=== PATIENT | female | born 1995 | race Caucasian/White ===

== ENCOUNTER 2018-06-10 21:15 | Emergency (ER) | payer OTHER ==
[~2018-06-10] VITALS: Ht 147.3 cm; Wt 56.7 kg
[~2018-06-10 21:15] MED LIST: HYDROXYZINE HCL50 MG PO; PAROXETINE CR12.5 MG PO
== END 2018-06-10 23:30 | disposition home or self-care (01) ==
LOC: ED 21:15
DX: M25.561 Pain in right knee (principal); F41.9 Anxiety disorder, unspecified
CPT/HCPCS: 73560; 99283

== ENCOUNTER 2019-02-16 21:31 | Emergency (ER) | payer OTHER ==
[~2019-02-16] VITALS: Ht 147.3 cm; Wt 59.0 kg
[~2019-02-16 21:31] MED LIST changes: +ACYCLOVIR200 MG PO
[2019-02-16] MEDS ORDERED: ACYCLOVIR400 MG PO (21:55)
[2019-02-16] MEDS ORDERED: AMOXICILLIN500 MG PO (22:31)
== END 2019-02-16 22:40 | disposition home or self-care (01) ==
LOC: ED 21:31
DX: H66.92 Otitis media, unspecified, left ear (principal); F41.9 Anxiety disorder, unspecified
CPT/HCPCS: 99282

== ENCOUNTER 2019-04-26 11:37 | Emergency (ER) | payer OTHER ==
[~2019-04-26] VITALS: Ht 149.9 cm; Wt 62.4 kg
[~2019-04-26 11:37] MED LIST changes: +ACYCLOVIR400 MG PO; +AMOXICILLIN500 MG PO
== END 2019-04-26 16:21 | disposition home or self-care (01) ==
LOC: ED 11:37
DX: O34.81 Maternal care for other abnormalities of pelvic organs, first trimester (principal); N83.201 Unspecified ovarian cyst, right side; Z3A.01 Less than 8 weeks gestation of pregnancy
CPT/HCPCS: 76801; 76817; 80053; 81001; 84702; 85025; 86900; 86901; 99283

== ENCOUNTER 2019-12-12 18:24 | Inpatient (IN) | payer OTHER ==
[~2019-12-12] VITALS: Ht 147.3 cm; Wt 73.0 kg
[2019-12-12] MEDS ORDERED: VITAFOL-OB+DHA1 EACH PO (20:54)
[2019-12-12] MEDS ORDERED: ACYCLOVIR400 MG PO (20:54)
[2019-12-12] MEDS ORDERED: FOLIC ACID1 MG PO (20:54)
--- NOTE | 2019-12-12 22:13 | PR ---
[facility] [address] [facility] [address] [place], [place] [address] Signed Progress Notes IP Datetime Report Generated by CPMelida: 12/12/2019 22:13 PROGRESS NOTES: [id number] Impression: Normal progression of labor; Reassuring heart rate Procedures: Sterile Vag Exam Plan: Continue present management; Anticipate Vaginal Delivery VITAL SIGNS: [id number] Vital Signs: Reviewed; Within Normal Limits EXAM: [id number] Dilatation: 8.0 Effacement: 100 Station: 0 Uterine Contractions: q1-2 MEMBRANES: [id number] Membrane Status: Intact Comments: Pt seen and examined. Doing well. Comfortable w/ epidurals. Feeling increased pressure. Anticipate soon. Reviewed anticipated course of labor. All questions answered Fetus A: [id number] FHR Baseline: 140 Variability: Moderate 6-25bpm Accelerations: 15X15 Decelerations: None FHR Category: Category I Presentation: Vertex Comments on Fetus A: No evidence of metabolic acidosis Fetus B: [id number] Signing Physician: Cheryl Levi DO Copies: ~ *Electronically Signed* 12/12/19 9425 CHERYL LEVI DO PATIENT NAME: JEANETTE ALARCON PROGRESS NOTE DATE OF : [birth year] PHYSICIAN: CHERYL LEVI DO RPT #: [id number] REPORT IS CONFIDENTIAL AND NOT TO BE RELEASED WITHOUT AUTHORIZATION
--- NOTE | 2019-12-13 12:28 | PR ---
[facility] [address] [facility] [place], [place] [address] Signed PP Progress Notes Datetime Report Generated by CPN: 12/13/2019 12:28 SUBJECTIVE: [id number] Pain: Within normal limits Nausea/Vomiting: Denies Flatus: Yes Vital Signs: [id number] Vital Signs: Reviewed EXAM: [id number] Cardiovascular: Normal Respiratory: Normal Abdomen/Uterus: Normal Lochia: Normal Vulva/Perineum: Not Done Breasts: Not Done CVA Tenderness: Normal Extremities: Normal Exam Comments: Fundus Firm U-2 nontender. Breastfeeeding baby IMPRESSION/PLAN/PROCEDURES: [id number] Impression: Normal progression Plan: Continue present management Progress Notes: Pt doing well. No problems. Breastfeeeding well. Anticipate d/c home tomorrow. Signing Physician: Cheryl Levi DO Copies: ~ *Electronically Signed* 12/13/19 1228 CHERYL LEVI DO PATIENT NAME: JEANETTE ALARCON PROGRESS NOTE DATE OF : 97 PHYSICIAN: CHERYL LEVI DO RPT #: [id number] REPORT IS CONFIDENTIAL AND NOT TO BE RELEASED WITHOUT AUTHORIZATION
--- NOTE | 2019-12-14 11:15 | PR ---
[facility] [address] [facility] [place], [place] [address] Signed PP Progress Notes Datetime Report Generated by CPN: 12/14/2019 11:15 SUBJECTIVE: [id number] Pain: Within normal limits Nausea/Vomiting: Denies Flatus: Yes Bowel Movement: No Vital Signs: [id number] Vital Signs: Reviewed; Within Normal Limits EXAM: [id number] Cardiovascular: Normal Respiratory: Normal Abdomen/Uterus: Normal Lochia: Normal Vulva/Perineum: Not Done Breasts: Not Done CVA Tenderness: Normal Extremities: Normal Incision: Not Applicable Progress: Normal Exam Comments: Fundus firm U-2 nontender IMPRESSION/PLAN/PROCEDURES: [id number] Impression: Normal progression Plan: Discharge Progress Notes: Pt seen and examined. Doing well. Ambulating, voiding, and tolerating full diet. Pain and lochia minimal. well. Desires d/c home. Reviewed pp instructions in detail. All questions answered Signing Physician: Cheryl Levi DO Copies: ~ *Electronically Signed* 12/14/19 1115 CHERYL LEVI DO PATIENT NAME: JEANETTE ALARCON PROGRESS NOTE DATE OF : [birth year] PHYSICIAN: CHERYL LEVI DO RPT #: [id number] REPORT IS CONFIDENTIAL AND NOT TO BE RELEASED WITHOUT AUTHORIZATION
== END 2019-12-14 11:55 | disposition home or self-care (01) | DRG 807 ==
LOC: FBCO 18:24 → FBC 19:50
PROVIDERS: ADMIT Obstetrics & Gynecology
PROC: 10E0XZZ Delivery of Products of Conception, External Approach (ICD-10-PCS; principal; 2019-12-12)
PROC: 0UQMXZZ Repair Vulva, External Approach (ICD-10-PCS; 2019-12-12)
PROC: 10907ZC Drainage of Amniotic Fluid, Therapeutic from Products of Conception, Via Natural or Artificial Opening (ICD-10-PCS; 2019-12-12)
PROC: 00HU33Z Insertion of Infusion Device into Spinal Canal, Percutaneous Approach (ICD-10-PCS; 2019-12-12)
PROC: 3E0R3BZ Introduction of Anesthetic Agent into Spinal Canal, Percutaneous Approach (ICD-10-PCS; 2019-12-12)
DX: O98.32 Other infections with a predominantly sexual mode of transmission complicating childbirth (principal); Z37.0 Single live birth; A60.00 Herpesviral infection of urogenital system, unspecified; Z3A.38 38 weeks gestation of pregnancy; O71.82 Other specified trauma to perineum and vulva; Z86.19 Personal history of other infectious and parasitic diseases; Z79.899 Other long term (current) drug therapy; Z82.79 Family history of other congenital malformations, deformations and chromosomal abnormalities
CPT/HCPCS: 36415; 85027; A9270; J2795; J3010; J7121

== ENCOUNTER 2020-03-16 19:49 | Emergency (ER) | payer OTHER ==
[~2020-03-16] VITALS: Ht 147.3 cm; Wt 61.7 kg
[~2020-03-16 19:49] MED LIST changes: +FOLIC ACID1 MG PO; +VITAFOL-OB+DHA1 EACH PO
--- OUTSIDE RECORDS SUMMARY | 2020-03-16 19:52 | XMS ---
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 Guidelines Source: [facility] [place] Guidelines Date: 04/28/2019 Care Coordination: Mental health services provided by [facility].\T\nbsp; Please contact [facility] with mental health concerns.\T\nbsp; [facility]: [phone]\T\ nbsp; [place]: [phone]. E.D. VISIT COUNT (12 MO.) 2 [facility] TOTAL 2 NOTE: Visits indicate total known visits. ED/UCC VISIT TRACKING (12 MO.) 03/16/2020 19:49 [facility] TYPE: Emergency COMPLAINT: - VAGINAL BLEEDING 04/26/2019 11:37 [facility] TYPE: Emergency COMPLAINT: - VAGINAL BLEEDING DIAGNOSES: - Maternal care for other abnormalities of pelvic organs, first - Hemorrhage in early , unspecified - Unspecified ovarian cyst, right side - Less than 8 weeks gestation of INPATIENT VISIT TRACKING (12 MO.) 12/12/2019 19:50 [facility] COMPLAINT: - OB CHECK DIAGNOSES: - Single live - Single live - 38 weeks gestation of - Family history of other congenital malformations, deformation - Family history of other congenital malformations, deformation - Other infections with a predominantly sexual mode of transmis - Other penitentiary (current) drug therapy - Other 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
[2020-03-16] MEDS ORDERED: SERTRALINE HCL50 MG PO (20:22)
== END 2020-03-16 21:45 | disposition home or self-care (01) ==
LOC: ED 19:49
DX: O20.0 Threatened abortion (principal); O99.341 Other mental disorders complicating pregnancy, first trimester; F41.9 Anxiety disorder, unspecified; Z79.899 Other long term (current) drug therapy; Z3A.01 Less than 8 weeks gestation of pregnancy
CPT/HCPCS: 81001; 84702; 84703; 99284

== ENCOUNTER → 2020-03-19 | Emergency (ER) | payer OTHER ==
[~2020-03-19] VITALS: Ht 147.3 cm; Wt 61.7 kg
[~2020-03-19] MED LIST changes: +SERTRALINE HCL50 MG PO
--- OUTSIDE RECORDS SUMMARY | 2020-03-19 13:56 | XMS ---
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 Care History Medical/Surgical 03/17/2020 [facility] - PATIENT HAS AN APT WITH DR CHILDS ON April. E.D. VISIT COUNT (12 MO.) 3 [facility]. TOTAL 3 NOTE: Visits indicate total known visits. 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
== END ==
LOC: ED 13:53
DX: O20.0 Threatened abortion (principal); Z3A.08 8 weeks gestation of pregnancy
CPT/HCPCS: 76801; 76817; 84702; 85025; 99284-25

== ENCOUNTER 2020-03-25 07:58 | Day surgery (SDC) | payer OTHER ==
[~2020-03-25] VITALS: Ht 147.3 cm; Wt 61.7 kg
--- NOTE | ~2020-03-25 | OR ---
[facility] [address] [place], [place] [address] Draft DATE OF OPERATION: 03/25/2020 SURGEON: Cheryl Levi DO PREOPERATIVE DIAGNOSIS: Missed miscarriage at approximately 9 weeks gestation. POSTOPERATIVE DIAGNOSIS: Missed miscarriage at approximately 9 weeks gestation. PROCEDURE PERFORMED: Suction D and C. ANESTHESIA: General. ESTIMATED BLOOD LOSS: 400 mL. SPECIMEN: Products of conception. FINDINGS: Approximately 9-week size uterus with cervix that dilates easily. Large gush of blood with initial pass of suction curette. This quickly improved with aggressive treatment of bleeding including completion of evacuation of products with suction D and C and sharp curette, Pitocin 60 units and 1 liter of LR bolused, tranexamic acid 1 g IV, and bimanual massage. Hemostasis at the end of the procedure. COMPLICATIONS: None. INDICATIONS: Ms. Alarcon is a pleasant 24-year-old, G3, P2-0-1-2 with intrauterine at approximately 9 weeks gestation. She was seen several times in the last week in the emergency department with large gushes of blood, but ultrasounds had shown only a small juan carlos-implantation hemorrhage and living IUP. Yesterday, the patient was seen for intake OB visit and bedside ultrasound demonstrated no cardiac activity. The patient was sent for an official ultrasound that confirmed 9-week demise. We reviewed options for management of missed miscarriage and the patient strongly desires suction D and C. PATIENT NAME: JEANETTE ALARCON OPERATIVE REPORT DATE OF : [birth year] REPORT #: [id number] PHYSICIAN: CHERYL LEVI DO PCP: NO PRIMARY CARE PHYSICIAN REPORT IS CONFIDENTIAL AND NOT TO BE RELEASED WITHOUT AUTHORIZATION [facility] [address] [place], [place] [address] Draft Risks, benefits, and alternatives were discussed in detail with the patient. Risks include, but are not limited to, infection, bleeding, Asherman syndrome with resulting infertility, perforation, or hysterectomy. The patient understands and wished to proceed with the procedure. TECHNIQUE: The patient was taken to the operating room. Time-out was performed to confirm correct patient and correct procedure. General anesthesia was adequately established. The patient was prepped and draped in the dorsal lithotomy position with feet in Yellofin stirrups. ICPs were on and running. The patient received doxycycline 200 mg p.o. 1 hour preoperatively per ACOG guidelines and no heparin was indicated. A weighted speculum was placed in the vagina and the anterior lip of the cervix was grasped with an Allis clamp. The cervix was gently dilated using Hegar dilators to a #11. An #11 curved curette was selected and advanced gently to the fundus. Suction was obtained to the green zone and the curette was removed while performing circumferential curettage. Initial large gush of blood was noted. This was treated aggressively with 60 units of Pitocin, placed into 1 liter of LR bolused as well as tranexamic acid 1 g IV. Several passes of the suction curette were simultaneously performed and the bleeding improved. Gentle sharp curettage was performed circumferentially insuring the all products of conception were removed. Bleeding improved significantly and bimanual pressure was held for several minutes. One final pass of the suction curette was then performed that demonstrated no additional products of conception and hemostasis was maintained. The patient was then taken to PACU in good and stable condition. Sponge, needle, and instrument count was correct x2. Cheryl Levi DO JOrlyW/LUISA /[id number] Copies: ~ PATIENT NAME: JEANETTE ALARCON OPERATIVE REPORT DATE OF : 97 REPORT #: [id number] PHYSICIAN: CHERYL LEVI DO PCP: NO PRIMARY CARE PHYSICIAN REPORT IS CONFIDENTIAL AND NOT TO BE RELEASED WITHOUT AUTHORIZATION
[2020-03-25] MEDS ORDERED: MOTRIN IB200 M1 PO (11:31)
[2020-03-25] MEDS ORDERED: NORCO 5-325 TA1 EACH PO (11:31)
== END 2020-03-25 13:42 | disposition home or self-care (01) ==
LOC: OPS 07:58 → DS 07:58 → OPS 13:42
PROVIDERS: Obstetrics & Gynecology
PROC: 10D17ZZ Extraction of Products of Conception, Retained, Via Natural or Artificial Opening (ICD-10-PCS; principal; 2020-03-25 08:00)
DX: O02.1 Missed abortion (principal); Z79.899 Other long term (current) drug therapy
CPT/HCPCS: 00952; 85027; 88305; J1100; J1885; J2250; J2405; J2590; J2704; J2765; J3010; J7121

== ENCOUNTER 2021-09-10 23:11 | Inpatient (IN) | payer OTHER ==
[~2021-09-10] VITALS: Ht 116.8 cm; Wt 72.6 kg
[~2021-09-10 23:11] MED LIST changes: +MOTRIN IB200 M1 PO; +NORCO 5-325 TA1 EACH PO
--- NOTE | 2021-09-10 23:59 | NUR ---
PT WAS SWABBED FOR COVID 19
--- NOTE | 2021-09-11 01:08 | PR ---
[facility] [address] [place], [place] [address] Signed Progress Notes IP Datetime Report Generated by CPN: 09/11/2021 01:07 PROGRESS NOTES: [id number] Impression: Normal Progression of Labor Procedures: Artificial ROM; Sterile Vag Exam Plan: Continue Present Management; Anticipate Vaginal Delivery Informed Consent Obtain: Vaginal Delivery VITAL SIGNS: [id number] Vital Signs: Reviewed VS Notable Details: Mild tachycardia EXAM: [id number] Dilatation: 5.0 Effacement: 70 Station: -2 Contractions: Irregular MEMBRANES: [id number] Comments: Detailed perineal / vulvar exam performed confirming no visable lesions and pt declines prodromal sx. Comfortable w/ epidural. Discussed AROM and pt agrees. head well applied and AROM performed w/out difficulty for small amount of clear fluid. Reviewed anticipated course of remained of labor and delivery. All questions answered. FETUS A: [id number] FHR Baseline: 135 Variability: Moderate 6-25bpm Accelerations: 15X15 Decelerations: Prolonged FHR Category: Category II Presentation: Vertex Comments on Fetus A: One spontaneous prolonged decel that resolved w/ repositioning. Cat 1 stince FETUS B: [id number] Signing Physician: Cheryl Levi DO Copies: ~ *Electronically Signed* 09/11/21 0107 CHERYL LEVI DO PATIENT NAME: JEANETTE ALARCON PROGRESS NOTE DATE OF : 97 PHYSICIAN: CHERYL LEVI DO RPT #: [id number] REPORT IS CONFIDENTIAL AND NOT TO BE RELEASED WITHOUT AUTHORIZATION
--- NOTE | 2021-09-11 03:33 | PR ---
[facility] [address] [place], [place] [address] Signed Progress Notes IP Datetime Report Generated by CPN: 09/11/2021 03:33 PROGRESS NOTES: [id number] Impression: Normal Progression of Labor; Reassuring Heart Rate Procedures: Intrauterine Pressure Catheter; Sterile Vag Exam Plan: Continue Present Management; Anticipate Vaginal Delivery Informed Consent Obtain: Vaginal Delivery VITAL SIGNS: [id number] Vital Signs: Reviewed VS Notable Details: Mild tachycardia EXAM: [id number] Dilatation: 7.5 Effacement: 90 Station: -2 Contractions: Irregular MEMBRANES: [id number] ROM Note: AROM by Lvei DO Comments: Pt seen and examined. Becoming slightly more uncomfortable despite epidural. Pt declines bolus. DIscussed IUPC to monitor ctxs more closely and pt agrees. IUPC placed w/out difficulty. Noted cervical change, adequate pelvis, and EFW. Anticipate soon. FETUS A: [id number] FHR Baseline: 135 Variability: Moderate 6-25bpm Accelerations: 15X15 Decelerations: Prolonged FHR Category: Category II Presentation: Vertex Comments on Fetus A: One spontaneous prolonged decel that resolved w/ repositioning. Cat 1 stince FETUS B: [id number] Signing Physician: Cheryl Levi DO Copies: ~ *Electronically Signed* 09/11/21 0333 CHERYL LEVI DO PATIENT NAME: JEANETTE ALARCON PROGRESS NOTE DATE OF : 97 PHYSICIAN: CHERYL LEVI DO RPT #: [id number] REPORT IS CONFIDENTIAL AND NOT TO BE RELEASED WITHOUT AUTHORIZATION
--- NOTE | 2021-09-12 07:59 | PR ---
[facility] [address] [facility] [place], [place] [address] Signed PP Progress Notes Datetime Report Generated by CPN: 09/12/2021 07:59 SUBJECTIVE: [id number] Pain: Within Normal Limits Nausea/Vomiting: Denies Flatus: Yes Bowel Movement: No Vital Signs: [id number] Vital Signs: Reviewed; Within Normal Limits Cardiovascular: Normal Respiratory: Normal Abdomen/Uterus: Normal Lochia: Normal Extremities: Normal Exam Comments: Fundus firm U-2 nontender IMPRESSION/PLAN/PROCEDURES: [id number] Impression: Normal Progression Plan: Discharge Progress Notes: Pt seen and examined. Doing well. Ambulating, voiding, and tolerating full diet. Pain and lochia minimal. well. No concerns. Desires d/c home today. Planning tubal ligation for pp contraception. Reviewed d/c instructions in detail Signing Physician: Cheryl Levi DO Copies: ~ *Electronically Signed* 09/12/21 0759 CHERYL LEVI DO PATIENT NAME: JEANETTE ALARCON PROGRESS NOTE DATE OF : 97 PHYSICIAN: CHERYL LEVI DO RPT #: [id number] REPORT IS CONFIDENTIAL AND NOT TO BE RELEASED WITHOUT AUTHORIZATION
== END 2021-09-12 10:34 | disposition home or self-care (01) | DRG 807 ==
LOC: FBCO 23:11 → FBC 23:15
PROVIDERS: ADMIT Obstetrics & Gynecology; ATTEND Obstetrics & Gynecology
PROC: 10E0XZZ Delivery of Products of Conception, External Approach (ICD-10-PCS; principal; 2021-09-10)
PROC: 10907ZC Drainage of Amniotic Fluid, Therapeutic from Products of Conception, Via Natural or Artificial Opening (ICD-10-PCS; 2021-09-10)
PROC: 10H07YZ Insertion of Other Device into Products of Conception, Via Natural or Artificial Opening (ICD-10-PCS; 2021-09-10)
PROC: 3E0R3BZ Introduction of Anesthetic Agent into Spinal Canal, Percutaneous Approach (ICD-10-PCS; 2021-09-10)
PROC: 00HU33Z Insertion of Infusion Device into Spinal Canal, Percutaneous Approach (ICD-10-PCS; 2021-09-10)
DX: O98.32 Other infections with a predominantly sexual mode of transmission complicating childbirth (principal); Z37.0 Single live birth; Z3A.39 39 weeks gestation of pregnancy; Z20.822 Contact with and (suspected) exposure to COVID-19; A60.00 Herpesviral infection of urogenital system, unspecified; Z90.89 Acquired absence of other organs; Z91.048 Other nonmedicinal substance allergy status; Z79.899 Other long term (current) drug therapy
CPT/HCPCS: 01960; 85027; A9270; C9803; J2590; J2795; J3010; J7121; U0003